=== PATIENT | female | born 2000 | race Caucasian/White ===

== ENCOUNTER 2020-01-29 13:15 | Emergency (ER) | payer BC ==
[~2020-01-29] VITALS: Ht 175.3 cm; Wt 77.1 kg
[2020-01-29 13:19] VITALS: Ht 175.3 cm; Wt 77.1 kg
[2020-01-29 16:46] VITALS: BP 94/71
== END 2020-01-29 17:06 | disposition home or self-care (01) ==
LOC: ED 13:15
DX: J45.901 Unspecified asthma with (acute) exacerbation (principal); Z91.013 Allergy to seafood
CPT/HCPCS: 87804; J2930; Q0092